=== PATIENT | male | born 1955 | race Caucasian/White ===

== ENCOUNTER → 2020-09-11 | Outpatient (CLI) | payer MEDICARE ==
--- NOTE | 2020-09-11 08:41 | Diagnostic Imaging Report ---
INDICATION: Right upper quadrant pain. TECHNIQUE: Multiple grayscale sonographic images were obtained of the right upper quadrant of the abdomen. CORRELATION STUDY: None FINDINGS: This is a fairly compromised and limited examination. This owing to patient's reported body habitus and overlying bowel gas. LIVER: There is uniform echotexture within the visualized portions of the liver. There is normal, hepatopedal direction of flow within the main portal vein. Liver size upper limits normal 18.8 cm. GALLBLADDER: The gallbladder demonstrates no definitive shadowing gallstones. No abnormal gallbladder wall thickening or pericholecystic fluid. COMMON BILE DUCT: Obscured. No mohini overt bile duct dilatation. PANCREAS: Obscured. AORTA/IVC: Obscured. RIGHT KIDNEY: 10.9 x 5.0 x 5.5 cm. No hydronephrosis. OTHER: None. IMPRESSION: 1. Fairly compromised and limited right upper quadrant abdominal ultrasound evaluation. 2. No definitive gallstones. 3. Borderline hepatic enlargement. Dictated by: Dictated on workstation # [id number]
== END ==
LOC: RAD 07:45
PROVIDERS: ATTEND Family Medicine
DX: R10.9 Unspecified abdominal pain (principal); I10 Essential (primary) hypertension; E78.5 Hyperlipidemia, unspecified; E79.0 Hyperuricemia without signs of inflammatory arthritis and tophaceous disease
CPT/HCPCS: 76705

== ENCOUNTER → 2020-09-17 | Outpatient (CLI) | payer MEDICARE ==
[~2020-09-17] MED LIST: CATHETER FLUSH 10 ML SYR IV PRN
--- NOTE | 2020-09-17 12:53 | Diagnostic Imaging Report ---
INDICATION: Hypertension. TECHNIQUE: The patient was administered 5.2 mCi of technetium 99m Choletec intravenously and imaging over the abdomen was performed. At 1 hour, the patient ingested 8 ounces of Ensure and the gallbladder ejection fraction was calculated. FINDINGS: There is homogeneous uptake of activity by the liver with prompt excretion of activity into the gallbladder and common duct. There is normal passage of activity into the small bowel. Minimal gastric activity is seen, consistent with mild bile reflux. The gallbladder ejection fraction is normal at 57%. IMPRESSION: 1. Patent cystic duct and common bile duct. 2. Minimal gastric bile reflux. 3. Normal gallbladder ejection fraction of 57%. Dictated by: Dictated on workstation # [id number]
== END ==
LOC: CARD 09:05
PROVIDERS: ATTEND Family Medicine
DX: I10 Essential (primary) hypertension (principal); K21.9 Gastro-esophageal reflux disease without esophagitis; E78.5 Hyperlipidemia, unspecified; E79.0 Hyperuricemia without signs of inflammatory arthritis and tophaceous disease
CPT/HCPCS: 78227; A9537